=== PATIENT | female | born 1970 | race Caucasian/White ===

== ENCOUNTER 2021-08-02 00:51 | Emergency (ER) | payer SELFPAY ==
[2021-08-02 00:58] VITALS: BP 172/104
[2021-08-02 00:59] VITALS: BP 157/104
[2021-08-02 01:00] VITALS: BP 150/94
[2021-08-02 01:30] VITALS: BP 129/94
[2021-08-02 02:01] VITALS: BP 112/77
[2021-08-02] MEDS ORDERED: IBUPROFEN600 MG PO (02:12)
[2021-08-02 02:14] VITALS: BP 112/77
== END 2021-08-02 02:19 | disposition home or self-care (01) | DRG 563 ==
LOC: ED 00:51
DX: S83.92XA Sprain of unspecified site of left knee, initial encounter (principal); V18.0XXA Pedal cycle driver injured in noncollision transport accident in nontraffic accident, initial encounter; Y93.55 Activity, bike riding

== ENCOUNTER 2021-08-27 00:40 | Emergency (ER) | payer SELFPAY ==
[~2021-08-27 00:40] MED LIST: IBUPROFEN600 MG PO
[2021-08-27 01:13] VITALS: BP 106/75
== END 2021-08-27 01:25 | disposition home or self-care (01) | DRG 605 ==
LOC: ED 00:40
PROC: 0HQGXZZ Repair Left Hand Skin, External Approach (ICD-10-PCS; principal; 2021-08-27)
DX: S61.412A Laceration without foreign body of left hand, initial encounter (principal); F17.200 Nicotine dependence, unspecified, uncomplicated; W19.XXXA Unspecified fall, initial encounter